=== PATIENT | male | born 1960 | race Caucasian/White ===

== ENCOUNTER 2017-12-14 09:15 | Inpatient (IN) | payer OTHER ==
[~2017-12-14] VITALS: Ht 195.6 cm; Wt 173.1 kg
[2017-12-14] MEDS ORDERED: SODIUM CHLORIDE 0.9% 1,000ML IVBOLUS ONE (10:30)
[2017-12-14 10:36] LABS: MEAN CORPUSCULAR HEMOGLOBIN 29.2 pg (27.5-34.5); MEAN CORPUSCULAR VOLUME 88.5 fL (81-97); MEAN PLATELET VOLUME 9.9 fL (7.4-10.4); PLATELET COUNT 220 x10^3/uL (130-400); RED CELL DISTRIBUTION WIDTH 14.8 % (9.4-14.8)
[2017-12-14 10:48] LABS: ALANINE AMINOTRANSFERASE 28 U/L (12-78); ALBUMIN 3.7 g/dL (3.4-5.0); ANION GAP 12 mmol/L (5-15); CALCIUM 8.8 mg/dL (8.5-10.1); CHLORIDE 101 mmol/L (98-107)
[2017-12-14 10:51] LABS: ALKALINE PHOSPHATASE 104 U/L (45-117); BILIRUBIN,TOTAL 0.9 mg/dL (0.2-1.0); CREATININE 1.24 mg/dL (0.7-1.3); TOTAL PROTEIN 8.5 g/dL (6.4-8.2)
[2017-12-14 10:52] LABS: MICROSCOPIC INDICATED
[2017-12-14 11:02] LABS: CULTURE INDICATED? NO
[2017-12-14] MEDS ORDERED: OMNIPAQUE 350 MG/ML, 150 ML BOTTLE ONE (11:42)
[2017-12-14 11:50] LABS: MD YES
[2017-12-14 11:56] LABS: <PLATELET ESTIMATE> ADEQUATE; <PLT MORPHOLOGY> NORMAL PLT MORPH; <RBC MORPHOLOGY> NORMAL; BAND#(MANUAL) 3.15 x10^3/uL; BANDS%(MANUAL) 16 % (0-7); SEG#(MANUAL) 16.55 x10^3/uL (1.8-6.8); SEGS% (MANUAL) 84 % (42-75); TOXIC GRAN 1+
[2017-12-14] MEDS ORDERED: INSU100V8 SQ ×2 (12:05)
[2017-12-14] MEDS ORDERED: DAPA5TAB PO (12:05)
[2017-12-14] MEDS ORDERED: INSU100C SQ-INSULIN (12:05)
[2017-12-14] MEDS ORDERED: FERR324T5 PO (12:08)
[2017-12-14] MEDS ORDERED: CYAN250013 PO (12:08)
[2017-12-14] MEDS ORDERED: CEFTRIAXONE PMX 1GM/50ML 50 ML ONE (12:25)
[2017-12-14] MEDS ORDERED: VANCOMYCIN 2,000 MG in SODIUM CHLORIDE 0.9% 500 ML IV ONE (12:30)
[2017-12-14] MEDS ORDERED: SODIUM CHLORIDE FLUSH 10ML SYR IVF PRN (12:30)
[2017-12-14] MEDS ORDERED: VANCOMYCIN PER PHARMACY IV ONE (12:30)
[2017-12-14] MEDS ORDERED: CEFTRIAXONE PMX 1GM/50ML 50 ML IVPB ONE (12:30)
[2017-12-14] MEDS ORDERED: FEBU80TA2 PO (12:38)
[2017-12-14] MEDS ORDERED: ASPI-496 PO (12:38)
[2017-12-14] MEDS ORDERED: SULF1TAB24 PO (12:38)
[2017-12-14] MEDS ORDERED: AMLO10TA2 PO (12:38)
[2017-12-14] MEDS ORDERED: LISI-170 PO (12:38)
[2017-12-14] MEDS ORDERED: MINO50TA2 PO (12:38)
[2017-12-14] MEDS ORDERED: GABA100C PO (12:38)
[2017-12-14] MEDS ORDERED: COLC0.6T37 PO (12:38)
[2017-12-14] MEDS ORDERED: METO-93 PO (12:38)
[2017-12-14] MEDS ORDERED: ALLO300T PO (12:38)
[2017-12-14] MEDS ORDERED: PIPERACILLIN/TAZO/PMX 4.5GM 100 ML IV SCH (13:00)
[2017-12-14] MEDS: ENOXAPARIN 40 MG/0.4 ML SQ SCH (13:00)
[2017-12-14] MEDS ORDERED: hydrALAzine 20 MG/ML, 1ML IVPush PRN (13:00)
[2017-12-14] MEDS ORDERED: VANCOMYCIN PER PHARMACY MC PRN (13:00)
[2017-12-14 14:24] VITALS: BP 134/85
[2017-12-14] MEDS ORDERED: PHARMACOKINETIC MONITORING MC PRN (14:30)
[2017-12-14] MEDS ORDERED: PHARMACOKINETIC CONSULTATION MC ONE (14:30)
[2017-12-14] MEDS: HYDROcodone/APAP 5/325 TABLET PO PRN ×2 (14:41→20:34)
[2017-12-14] MEDS: INSULIN LISPRO 100 UNITS/ML, PEN SQ-INSULIN SCH ×2 (17:14→20:32)
[2017-12-14] MEDS: LACTATED RINGERS 1,000 ML IV SCH (17:16)
[2017-12-14 17:44] LABS: HEMOGLOBIN A1C 9.4 % (4.2-6.3)
[2017-12-14 20:12] VITALS: BP 150/81
[2017-12-14] MEDS: CEFTAROLINE 600 MG in SODIUM CHLORIDE 0.9% 100 ML IV SCH (20:33)
[2017-12-14] MEDS: ONDANSETRON ODT 4 MG PO PRN (20:34)
[2017-12-14] MEDS ORDERED: INSULIN GLARGINE 100 UNITS/ML, PEN SQ-INSULIN SCH (21:00)
[2017-12-15] MEDS: LACTATED RINGERS 1,000 ML IV SCH ×3 (00:40→17:00)
[2017-12-15] MEDS: HYDROcodone/APAP 5/325 TABLET PO PRN ×2 (00:42→08:02)
[2017-12-15] MEDS ORDERED: VANCOMYCIN 2,000 MG in SODIUM CHLORIDE 0.9% 500 ML IV SCH (01:00)
[2017-12-15 01:25] VITALS: BP 130/72
[2017-12-15 05:34] LABS: MEAN CORPUSCULAR HEMOGLOBIN 29.7 pg (27.5-34.5); MEAN CORPUSCULAR HGB CONC 33.1 g/dL (33.2-36.2); MEAN CORPUSCULAR VOLUME 89.8 fL (81-97); MEAN PLATELET VOLUME 9.6 fL (7.4-10.4); PLATELET COUNT 194 x10^3/uL (130-400); RED BLOOD COUNT 5.33 x10^6/uL (4.38-5.82); RED CELL DISTRIBUTION WIDTH 15.2 % (9.4-14.8)
[2017-12-15 05:43] LABS: CHLORIDE 101 mmol/L (98-107)
[2017-12-15 06:00] LABS: ALANINE AMINOTRANSFERASE 28 U/L (12-78); ALBUMIN 3.1 g/dL (3.4-5.0); ALKALINE PHOSPHATASE 77 U/L (45-117); ANION GAP 9 mmol/L (5-15); BILIRUBIN,TOTAL 0.8 mg/dL (0.2-1.0); CALCIUM 8.5 mg/dL (8.5-10.1); CHOLESTEROL, TOTAL 155 mg/dL (140-239); CREATININE 1.01 mg/dL (0.7-1.3); HDL CHOL % 20 % (26-37); HDL CHOLESTEROL (DIRECT) 31 mg/dL (40-60); LDL CHOLESTEROL,CALCULATED 91 mg/dL (54-169); LDL/HDL RATIO 2.9 (0.5-3.0); TOTAL PROTEIN 7.8 g/dL (6.4-8.2); TRIGLYCERIDES 164 mg/dL (50-200); VLDL CHOLESTEROL 33 mg/dL (0-25)
[2017-12-15 06:02] LABS: MD YES
[2017-12-15 06:04] LABS: BAND#(MANUAL) 0.78 x10^3/uL; BANDS%(MANUAL) 5 % (0-7); BASOS#(MANUAL) 0.16 x10^3/uL (0-0.1); BASOS% (MANUAL) 1 % (0-1); EOS#(MANUAL) 0.16 x10^3/uL (0.0-0.4); EOS% (MANUAL) 1 % (1-7); LYMPH#(MANUAL) 1.09 x10^3/uL (1-3.4); LYMPHS% (MANUAL) 7 % (22-44); MONOS#(MANUAL) 0.31 x10^3/uL (0.3-2.7); MONOS% (MANUAL) 2 % (2-9); SEGS% (MANUAL) 84 % (42-75)
[2017-12-15 06:05] LABS: <PLATELET ESTIMATE> ADEQUATE; <PLT MORPHOLOGY> NORMAL PLT MORPH
[2017-12-15 06:06] LABS: POLYCHROMASIA 1+
[2017-12-15] MEDS: ONDANSETRON ODT 4 MG PO PRN (07:23)
[2017-12-15] MEDS: CEFTAROLINE 600 MG in SODIUM CHLORIDE 0.9% 100 ML IV SCH ×2 (08:02→15:38)
[2017-12-15] MEDS: INSULIN LISPRO 100 UNITS/ML, PEN SQ-INSULIN SCH ×4 (08:02→20:11)
[2017-12-15 08:23] VITALS: BP 157/76
[2017-12-15] MEDS ORDERED: INSULIN GLARGINE 100 UNITS/ML, PEN SQ-INSULIN SCH (12:00)
[2017-12-15] MEDS: KETOROLAC 30 MG/1 ML IVPush SCH ×2 (12:02→18:30)
[2017-12-15 12:39] VITALS: BP 125/76
[2017-12-15] MEDS: CLINDAMYCIN PMX 900MG/50ML 50 ML IV SCH ×2 (12:52→20:11)
[2017-12-15] MEDS: ENOXAPARIN 40 MG/0.4 ML SQ SCH (12:56)
[2017-12-15 19:33] VITALS: BP 113/68
[2017-12-15] MEDS: INSULIN GLARGINE 100 UNITS/ML, PEN SQ-INSULIN SCH (20:12)
[2017-12-16] MEDS: LACTATED RINGERS 1,000 ML IV SCH ×4 (00:07→23:59)
[2017-12-16] MEDS: KETOROLAC 30 MG/1 ML IVPush SCH ×5 (00:07→23:59)
[2017-12-16] MEDS: CEFTAROLINE 600 MG in SODIUM CHLORIDE 0.9% 100 ML IV SCH ×4 (00:08→23:59)
[2017-12-16] MEDS: ONDANSETRON ODT 4 MG PO PRN ×2 (00:09→03:46)
[2017-12-16 02:00] VITALS: BP 132/72
[2017-12-16] MEDS: HYDROcodone/APAP 5/325 TABLET PO PRN ×3 (03:30→19:50)
[2017-12-16] MEDS: CLINDAMYCIN PMX 900MG/50ML 50 ML IV SCH ×3 (06:03→20:15)
[2017-12-16 08:04] LABS: BASOPHILS # (AUTO) 0.01 x10^3/uL (0-0.1); BASOPHILS % (AUTO) 0 % (0-1); EOSINOPHILS # (AUTO) 0.24 x10^3/uL (0-0.4); EOSINOPHILS % (AUTO) 2 % (1-7); LYMPHOCYTES # (AUTO) 0.71 x10^3/uL (1-3.4); LYMPHOCYTES % (AUTO) 5 % (22-44); MD NO; MEAN CORPUSCULAR HEMOGLOBIN 29.6 pg (27.5-34.5); MEAN CORPUSCULAR VOLUME 89.7 fL (81-97); MEAN PLATELET VOLUME 9.6 fL (7.4-10.4); MONOCYTES # (AUTO) 0.76 x10^3/uL (0.2-0.8); MONOCYTES % (AUTO) 6 % (2-9); NEUTROPHILS # (AUTO) 11.91 x10^3/uL (1.8-6.8); NEUTROPHILS % (AUTO) 87 % (42-75); PLATELET COUNT 177 x10^3/uL (130-400); RED BLOOD COUNT 5.35 x10^6/uL (4.38-5.82); RED CELL DISTRIBUTION WIDTH 15.1 % (9.4-14.8)
[2017-12-16 08:15] LABS: ALBUMIN 2.9 g/dL (3.4-5.0); ANION GAP 6 mmol/L (5-15); CALCIUM 8.3 mg/dL (8.5-10.1); CHLORIDE 100 mmol/L (98-107)
[2017-12-16 08:18] LABS: ALANINE AMINOTRANSFERASE 59 U/L (12-78); ALKALINE PHOSPHATASE 98 U/L (45-117); BILIRUBIN,TOTAL 0.8 mg/dL (0.2-1.0); CREATININE 1.01 mg/dL (0.7-1.3); TOTAL PROTEIN 7.4 g/dL (6.4-8.2)
[2017-12-16] MEDS: INSULIN GLARGINE 100 UNITS/ML, PEN SQ-INSULIN SCH ×2 (08:26→20:17)
[2017-12-16] MEDS: INSULIN LISPRO 100 UNITS/ML, PEN SQ-INSULIN SCH ×4 (08:27→20:16)
[2017-12-16 08:29] VITALS: BP 143/72
[2017-12-16] MEDS: ENOXAPARIN 40 MG/0.4 ML SQ SCH (13:00)
[2017-12-16 14:20] VITALS: BP 149/77
[2017-12-16 19:04] VITALS: BP 146/83
[2017-12-17 02:48] VITALS: BP 116/80
[2017-12-17 05:01] LABS: BASOPHILS # (AUTO) 0.03 x10^3/uL (0-0.1); BASOPHILS % (AUTO) 0 % (0-1); EOSINOPHILS # (AUTO) 0.24 x10^3/uL (0-0.4); EOSINOPHILS % (AUTO) 2 % (1-7); LYMPHOCYTES # (AUTO) 1.56 x10^3/uL (1-3.4); LYMPHOCYTES % (AUTO) 15 % (22-44); MD NO; MEAN CORPUSCULAR HEMOGLOBIN 29.8 pg (27.5-34.5); MEAN CORPUSCULAR HGB CONC 32.9 g/dL (33.2-36.2); MEAN CORPUSCULAR VOLUME 90.6 fL (81-97); MEAN PLATELET VOLUME 10.2 fL (7.4-10.4); MONOCYTES % (AUTO) 8 % (2-9); NEUTROPHILS # (AUTO) 8.13 x10^3/uL (1.8-6.8); NEUTROPHILS % (AUTO) 76 % (42-75); PLATELET COUNT 171 x10^3/uL (130-400); RED BLOOD COUNT 4.92 x10^6/uL (4.38-5.82); RED CELL DISTRIBUTION WIDTH 14.7 % (9.4-14.8)
[2017-12-17 05:10] LABS: ALBUMIN 2.7 g/dL (3.4-5.0); ANION GAP 4 mmol/L (5-15); CALCIUM 8.4 mg/dL (8.5-10.1); CHLORIDE 102 mmol/L (98-107)
[2017-12-17 05:16] LABS: ALANINE AMINOTRANSFERASE 68 U/L (12-78); ALKALINE PHOSPHATASE 135 U/L (45-117); BILIRUBIN,TOTAL 0.4 mg/dL (0.2-1.0); CREATININE 1.02 mg/dL (0.7-1.3); TOTAL PROTEIN 7.1 g/dL (6.4-8.2)
[2017-12-17] MEDS: KETOROLAC 30 MG/1 ML IVPush SCH ×4 (05:18→23:52)
[2017-12-17] MEDS: CLINDAMYCIN PMX 900MG/50ML 50 ML IV SCH ×3 (05:18→21:07)
[2017-12-17] MEDS: LACTATED RINGERS 1,000 ML IV SCH ×2 (05:25→14:49)
[2017-12-17] MEDS: HYDROcodone/APAP 5/325 TABLET PO PRN ×3 (05:38→17:55)
[2017-12-17 07:34] VITALS: BP 153/84
[2017-12-17] MEDS: CEFTAROLINE 600 MG in SODIUM CHLORIDE 0.9% 100 ML IV SCH ×3 (07:58→23:51)
[2017-12-17] MEDS: INSULIN LISPRO 100 UNITS/ML, PEN SQ-INSULIN SCH ×4 (07:58→21:07)
[2017-12-17] MEDS: INSULIN GLARGINE 100 UNITS/ML, PEN SQ-INSULIN SCH ×2 (09:01→21:08)
[2017-12-17] MEDS: LISINOPRIL 20 MG TABLET PO SCH (10:01)
[2017-12-17] MEDS: ENOXAPARIN 40 MG/0.4 ML SQ SCH (12:03)
[2017-12-17 14:38] VITALS: BP 155/86
[2017-12-17] MEDS: ONDANSETRON ODT 4 MG PO PRN (17:48)
[2017-12-17 19:53] VITALS: BP 144/81
[2017-12-17] MEDS: METOPROLOL SUCCINATE 50 MG TAB.ER.24H PO SCH ×3 (21:07→21:24)
[2017-12-18 01:31] VITALS: BP 144/83
[2017-12-18] MEDS: HYDROcodone/APAP 5/325 TABLET PO PRN ×3 (01:53→23:01)
[2017-12-18] MEDS: LACTATED RINGERS 1,000 ML IV SCH ×4 (01:53→18:26)
[2017-12-18] MEDS: ONDANSETRON ODT 4 MG PO PRN ×3 (01:53→23:01)
[2017-12-18] MEDS: CLINDAMYCIN PMX 900MG/50ML 50 ML IV SCH ×3 (04:53→20:31)
[2017-12-18] MEDS: KETOROLAC 30 MG/1 ML IVPush SCH ×3 (06:01→18:26)
[2017-12-18 06:16] LABS: BASOPHILS # (AUTO) 0.02 x10^3/uL (0-0.1); BASOPHILS % (AUTO) 0 % (0-1); EOSINOPHILS # (AUTO) 0.16 x10^3/uL (0-0.4); EOSINOPHILS % (AUTO) 2 % (1-7); LYMPHOCYTES # (AUTO) 1.85 x10^3/uL (1-3.4); LYMPHOCYTES % (AUTO) 20 % (22-44); MD NO; MEAN CORPUSCULAR HEMOGLOBIN 29.7 pg (27.5-34.5); MEAN CORPUSCULAR HGB CONC 32.9 g/dL (33.2-36.2); MEAN CORPUSCULAR VOLUME 90.2 fL (81-97); MONOCYTES # (AUTO) 0.75 x10^3/uL (0.2-0.8); MONOCYTES % (AUTO) 8 % (2-9); NEUTROPHILS # (AUTO) 6.47 x10^3/uL (1.8-6.8); NEUTROPHILS % (AUTO) 70 % (42-75); PLATELET COUNT 173 x10^3/uL (130-400); RED CELL DISTRIBUTION WIDTH 14.6 % (9.4-14.8)
[2017-12-18 06:22] LABS: ALBUMIN 2.5 g/dL (3.4-5.0); CALCIUM 8.5 mg/dL (8.5-10.1)
[2017-12-18 06:27] LABS: ANION GAP 8 mmol/L (5-15); CHLORIDE 103 mmol/L (98-107)
[2017-12-18 06:35] LABS: ALANINE AMINOTRANSFERASE 69 U/L (12-78); ALKALINE PHOSPHATASE 190 U/L (45-117); BILIRUBIN,TOTAL 0.6 mg/dL (0.2-1.0); CREATININE 0.83 mg/dL (0.7-1.3); TOTAL PROTEIN 6.9 g/dL (6.4-8.2)
[2017-12-18 07:54] VITALS: BP 143/81
[2017-12-18] MEDS: INSULIN GLARGINE 100 UNITS/ML, PEN SQ-INSULIN SCH ×2 (09:02→20:31)
[2017-12-18] MEDS: INSULIN LISPRO 100 UNITS/ML, PEN SQ-INSULIN SCH ×4 (09:03→20:32)
[2017-12-18] MEDS: LISINOPRIL 20 MG TABLET PO SCH (09:30)
[2017-12-18] MEDS: CEFTAROLINE 600 MG in SODIUM CHLORIDE 0.9% 100 ML IV SCH ×2 (09:31→16:00)
[2017-12-18] MEDS: ENOXAPARIN 40 MG/0.4 ML SQ SCH (13:00)
[2017-12-18 13:36] VITALS: BP 137/85
[2017-12-18 18:51] VITALS: BP 160/89
[2017-12-18] MEDS: METOPROLOL SUCCINATE 50 MG TAB.ER.24H PO SCH (20:31)
[2017-12-19] MEDS: CEFTAROLINE 600 MG in SODIUM CHLORIDE 0.9% 100 ML IV SCH ×4 (00:02→23:53)
[2017-12-19] MEDS: KETOROLAC 30 MG/1 ML IVPush SCH ×5 (00:02→23:53)
[2017-12-19 00:46] VITALS: BP 155/89
[2017-12-19] MEDS: LACTATED RINGERS 1,000 ML IV SCH ×3 (04:09→23:53)
[2017-12-19] MEDS: CLINDAMYCIN PMX 900MG/50ML 50 ML IV SCH ×3 (04:54→21:24)
[2017-12-19] MEDS: ONDANSETRON ODT 4 MG PO PRN ×4 (05:56→23:06)
[2017-12-19] MEDS: HYDROcodone/APAP 5/325 TABLET PO PRN ×4 (06:11→23:06)
[2017-12-19] MEDS: LISINOPRIL 20 MG TABLET PO SCH (07:49)
[2017-12-19] MEDS: INSULIN GLARGINE 100 UNITS/ML, PEN SQ-INSULIN SCH ×2 (07:51→21:00)
[2017-12-19] MEDS: INSULIN LISPRO 100 UNITS/ML, PEN SQ-INSULIN SCH ×4 (08:40→21:00)
[2017-12-19 09:04] VITALS: BP 177/89
[2017-12-19] MEDS ORDERED: LIDOCAINE 2%, 10ML INFIL ONE (10:30)
[2017-12-19] MEDS: ENOXAPARIN 40 MG/0.4 ML SQ SCH (13:00)
[2017-12-19 13:50] VITALS: BP 179/66
[2017-12-19 18:45] VITALS: BP 166/95
[2017-12-19] MEDS: METOPROLOL SUCCINATE 50 MG TAB.ER.24H PO SCH (20:32)
[2017-12-20 01:38] VITALS: BP 182/82
[2017-12-20] MEDS: KETOROLAC 30 MG/1 ML IVPush SCH (05:56)
[2017-12-20] MEDS: CLINDAMYCIN PMX 900MG/50ML 50 ML IV SCH ×3 (05:56→17:42)
[2017-12-20] MEDS: ONDANSETRON ODT 4 MG PO PRN ×2 (05:56→17:43)
[2017-12-20] MEDS: HYDROcodone/APAP 5/325 TABLET PO PRN ×3 (05:56→18:12)
[2017-12-20 08:16] VITALS: BP 166/83
[2017-12-20] MEDS: CEFTAROLINE 600 MG in SODIUM CHLORIDE 0.9% 100 ML IV SCH ×2 (08:46→16:53)
[2017-12-20] MEDS: LISINOPRIL 20 MG TABLET PO SCH (08:47)
[2017-12-20] MEDS: INSULIN LISPRO 100 UNITS/ML, PEN SQ-INSULIN SCH ×4 (08:47→21:08)
[2017-12-20] MEDS: INSULIN GLARGINE 100 UNITS/ML, PEN SQ-INSULIN SCH ×2 (08:48→21:09)
[2017-12-20] MEDS: LACTATED RINGERS 1,000 ML IV SCH ×2 (12:58→21:09)
[2017-12-20] MEDS: ENOXAPARIN 40 MG/0.4 ML SQ SCH (12:59)
[2017-12-20 14:15] VITALS: BP 166/80
[2017-12-20 20:14] VITALS: BP 186/102
[2017-12-20] MEDS: METOPROLOL SUCCINATE 50 MG TAB.ER.24H PO SCH (20:27)
[2017-12-20 22:00] VITALS: BP 190/103
[2017-12-20] MEDS: LABETALOL 5MG/ML, 20ML IVPush PRN (22:08)
[2017-12-20 23:00] VITALS: BP 183/93
[2017-12-20 23:55] LABS: MICROSCOPIC NOT IND
[2017-12-20 23:57] LABS: CULTURE INDICATED? NO
[2017-12-21] VITALS (10 sets, daily range): BP systolic 161–191; BP diastolic 74–110
[2017-12-21] MEDS: CEFTAROLINE 600 MG in SODIUM CHLORIDE 0.9% 100 ML IV SCH ×3 (00:50→16:33)
[2017-12-21] MEDS: ONDANSETRON ODT 4 MG PO PRN ×2 (01:46→06:43)
[2017-12-21] MEDS: HYDROcodone/APAP 5/325 TABLET PO PRN ×3 (01:46→23:03)
[2017-12-21] MEDS: LABETALOL 5MG/ML, 20ML IVPush PRN ×2 (02:34→20:42)
[2017-12-21] MEDS: ONDANSETRON 2MG/ML, 2ML IVPush PRN ×3 (02:53→19:31)
[2017-12-21] MEDS: CLINDAMYCIN PMX 900MG/50ML 50 ML IV SCH ×3 (04:10→20:24)
[2017-12-21] MEDS ORDERED: HYDROmorphone 2 MG/ML, 1ML ONE ×5 (05:50→20:35)
[2017-12-21] MEDS ORDERED: HYDROmorphone 1 MG/ML, 1ML IV PRN (06:00)
[2017-12-21] MEDS: hydrALAzine 20 MG/ML, 1ML IV PRN ×2 (06:43→21:54)
[2017-12-21] MEDS: INSULIN LISPRO 100 UNITS/ML, PEN SQ-INSULIN SCH ×4 (08:12→20:00)
[2017-12-21] MEDS: FERROUS SULFATE 325 MG TABLET PO SCH (08:13)
[2017-12-21] MEDS: LISINOPRIL 20 MG TABLET PO SCH (08:15)
[2017-12-21] MEDS: ALLOPURINOL 300 MG TABLET PO SCH (08:15)
[2017-12-21] MEDS: AMLODIPINE 5 MG TABLET PO SCH (08:15)
[2017-12-21] MEDS ORDERED: hydrALAzine 20 MG/ML, 1ML IVPush PRN (09:00)
[2017-12-21] MEDS: HYDROmorphone 1 MG/ML, 1ML IV PRN ×4 (09:24→20:42)
[2017-12-21 09:26] LABS: MEAN CORPUSCULAR HEMOGLOBIN 29.3 pg (27.5-34.5); MEAN CORPUSCULAR HGB CONC 32.9 g/dL (33.2-36.2); MEAN CORPUSCULAR VOLUME 89.1 fL (81-97); MEAN PLATELET VOLUME 9.4 fL (7.4-10.4); PLATELET COUNT 256 x10^3/uL (130-400); RED BLOOD COUNT 5.13 x10^6/uL (4.38-5.82); RED CELL DISTRIBUTION WIDTH 14.7 % (9.4-14.8)
[2017-12-21 09:38] LABS: ALANINE AMINOTRANSFERASE 63 U/L (12-78); ALBUMIN 2.9 g/dL (3.4-5.0); ANION GAP 5 mmol/L (5-15); CALCIUM 8.7 mg/dL (8.5-10.1); CHLORIDE 100 mmol/L (98-107); CREATININE 0.91 mg/dL (0.7-1.3)
[2017-12-21 09:40] LABS: ALKALINE PHOSPHATASE 246 U/L (45-117); BILIRUBIN,TOTAL 0.5 mg/dL (0.2-1.0); TOTAL PROTEIN 7.3 g/dL (6.4-8.2)
[2017-12-21 09:45] LABS: MD SCAN
[2017-12-21 09:46] LABS: BASOPHILS # (AUTO) 0.01 x10^3/uL (0-0.1); BASOPHILS % (AUTO) 0 % (0-1); EOSINOPHILS # (AUTO) 0.12 x10^3/uL (0-0.4); EOSINOPHILS % (AUTO) 1 % (1-7); LYMPHOCYTES % (AUTO) 14 % (22-44); MONOCYTES # (AUTO) 0.22 x10^3/uL (0.2-0.8); MONOCYTES % (AUTO) 2 % (2-9); NEUTROPHILS # (AUTO) 8.88 x10^3/uL (1.8-6.8); NEUTROPHILS % (AUTO) 83 % (42-75)
[2017-12-21] MEDS: INSULIN GLARGINE 100 UNITS/ML, PEN SQ-INSULIN SCH ×2 (10:42→20:00)
[2017-12-21] MEDS ORDERED: BISACODYL 5 MG EC TABLET PO PRN (12:00)
[2017-12-21] MEDS: ENOXAPARIN 40 MG/0.4 ML SQ SCH (13:00)
[2017-12-21] MEDS: ASPIRIN 81 MG TABLET EC PO SCH (19:31)
[2017-12-21] MEDS: METOPROLOL SUCCINATE 50 MG TAB.ER.24H PO SCH (19:48)
[2017-12-21] MEDS: GABAPENTIN 100 MG CAPSULE PO SCH (19:48)
[2017-12-22] VITALS (8 sets, daily range): BP systolic 164–194; BP diastolic 82–127
[2017-12-22] MEDS: CEFTAROLINE 600 MG in SODIUM CHLORIDE 0.9% 100 ML IV SCH ×3 (00:29→17:57)
[2017-12-22] MEDS: ENALAPRILAT 1.25 MG/ML, 2ML IV PRN ×2 (01:01→09:17)
[2017-12-22] MEDS ORDERED: HYDROmorphone 2 MG/ML, 1ML ONE ×5 (01:50→19:48)
[2017-12-22] MEDS: ONDANSETRON 2MG/ML, 2ML IVPush PRN ×4 (01:52→23:29)
[2017-12-22] MEDS: HYDROmorphone 1 MG/ML, 1ML IV PRN ×5 (01:54→20:13)
[2017-12-22] MEDS: CLINDAMYCIN PMX 900MG/50ML 50 ML IV SCH ×2 (05:12→16:32)
[2017-12-22] MEDS: HYDROcodone/APAP 5/325 TABLET PO PRN ×3 (06:38→23:26)
[2017-12-22] MEDS: ALLOPURINOL 300 MG TABLET PO SCH (07:58)
[2017-12-22] MEDS: AMLODIPINE 5 MG TABLET PO SCH (07:58)
[2017-12-22] MEDS: FERROUS SULFATE 325 MG TABLET PO SCH (07:58)
[2017-12-22] MEDS: LISINOPRIL 20 MG TABLET PO SCH (07:58)
[2017-12-22] MEDS: INSULIN GLARGINE 100 UNITS/ML, PEN SQ-INSULIN SCH ×2 (08:00→20:12)
[2017-12-22] MEDS: INSULIN LISPRO 100 UNITS/ML, PEN SQ-INSULIN SCH ×4 (08:01→20:13)
[2017-12-22] MEDS ORDERED: FUROSEMIDE 40 MG/4 ML IV ONE (09:30)
[2017-12-22] MEDS: ONDANSETRON ODT 4 MG PO PRN ×2 (12:07→19:28)
[2017-12-22] MEDS: hydrALAzine 20 MG/ML, 1ML IV PRN (12:07)
[2017-12-22] MEDS: ENOXAPARIN 40 MG/0.4 ML SQ SCH (13:00)
[2017-12-22] MEDS ORDERED: OMNIPAQUE 350 MG/ML, 150 ML BOTTLE ONE (15:42)
[2017-12-22] MEDS: NYSTATIN TOPICAL POWDER 15GM TP SCH ×2 (16:00→21:00)
[2017-12-22] MEDS: METOPROLOL SUCCINATE 50 MG TAB.ER.24H PO SCH (20:15)
[2017-12-22] MEDS: GABAPENTIN 100 MG CAPSULE PO SCH (20:15)
[2017-12-22] MEDS: ASPIRIN 81 MG TABLET EC PO SCH (20:15)
[2017-12-22 20:58] LABS: MICROSCOPIC NOT IND
[2017-12-22 21:00] LABS: CULTURE INDICATED? NO
[2017-12-23] MEDS: CLINDAMYCIN PMX 900MG/50ML 50 ML IV SCH ×4 (00:08→23:57)
[2017-12-23 01:07] VITALS: BP 171/92
[2017-12-23] MEDS: hydrALAzine 20 MG/ML, 1ML IV PRN (02:21)
[2017-12-23] MEDS: CEFTAROLINE 600 MG in SODIUM CHLORIDE 0.9% 100 ML IV SCH ×3 (02:21→18:15)
[2017-12-23] MEDS ORDERED: HYDROmorphone 2 MG/ML, 1ML ONE ×3 (02:34→22:00)
[2017-12-23 03:30] VITALS: BP 157/86
[2017-12-23 05:00] LABS: BASOPHILS # (AUTO) 0.04 x10^3/uL (0-0.1); BASOPHILS % (AUTO) 0 % (0-1); EOSINOPHILS # (AUTO) 0.15 x10^3/uL (0-0.4); EOSINOPHILS % (AUTO) 1 % (1-7); LYMPHOCYTES # (AUTO) 1.85 x10^3/uL (1-3.4); LYMPHOCYTES % (AUTO) 16 % (22-44); MD NO; MEAN CORPUSCULAR HEMOGLOBIN 29.5 pg (27.5-34.5); MEAN CORPUSCULAR HGB CONC 32.6 g/dL (33.2-36.2); MEAN CORPUSCULAR VOLUME 90.4 fL (81-97); MEAN PLATELET VOLUME 9.8 fL (7.4-10.4); MONOCYTES # (AUTO) 0.59 x10^3/uL (0.2-0.8); MONOCYTES % (AUTO) 5 % (2-9); NEUTROPHILS # (AUTO) 8.96 x10^3/uL (1.8-6.8); NEUTROPHILS % (AUTO) 77 % (42-75); PLATELET COUNT 280 x10^3/uL (130-400); RED BLOOD COUNT 5.06 x10^6/uL (4.38-5.82); RED CELL DISTRIBUTION WIDTH 15.6 % (9.4-14.8)
[2017-12-23 05:09] LABS: ALBUMIN 3.1 g/dL (3.4-5.0); ANION GAP 3 mmol/L (5-15); CALCIUM 8.5 mg/dL (8.5-10.1); CHLORIDE 96 mmol/L (98-107)
[2017-12-23 05:17] LABS: ALANINE AMINOTRANSFERASE 45 U/L (12-78); ALKALINE PHOSPHATASE 204 U/L (45-117); BILIRUBIN,TOTAL 0.6 mg/dL (0.2-1.0); CREATININE 0.83 mg/dL (0.7-1.3); TOTAL PROTEIN 7.3 g/dL (6.4-8.2)
[2017-12-23 06:11] LABS: HCT (SEDRATE) 45.8 % (39.2-51.8)
[2017-12-23 07:31] VITALS: BP 148/81
[2017-12-23] MEDS: ONDANSETRON 2MG/ML, 2ML IVPush PRN ×2 (08:51→16:41)
[2017-12-23] MEDS: HYDROcodone/APAP 5/325 TABLET PO PRN ×4 (08:52→22:09)
[2017-12-23] MEDS: INSULIN LISPRO 100 UNITS/ML, PEN SQ-INSULIN SCH ×4 (09:13→22:07)
[2017-12-23] MEDS: FERROUS SULFATE 325 MG TABLET PO SCH (10:43)
[2017-12-23] MEDS: AMLODIPINE 5 MG TABLET PO SCH (10:43)
[2017-12-23] MEDS: ALLOPURINOL 300 MG TABLET PO SCH (10:44)
[2017-12-23] MEDS: LISINOPRIL 20 MG TABLET PO SCH (10:52)
[2017-12-23] MEDS ORDERED: FUROSEMIDE 40 MG/4 ML IV ONE (11:00)
[2017-12-23 12:17] VITALS: BP 158/82
[2017-12-23] MEDS: INSULIN GLARGINE 100 UNITS/ML, PEN SQ-INSULIN SCH ×2 (12:24→22:06)
[2017-12-23] MEDS: NYSTATIN TOPICAL POWDER 15GM TP SCH ×3 (12:26→22:09)
[2017-12-23] MEDS: ENOXAPARIN 40 MG/0.4 ML SQ SCH (13:00)
[2017-12-23] MEDS: HYDROmorphone 1 MG/ML, 1ML IV PRN ×2 (18:41→22:04)
[2017-12-23] MEDS: ONDANSETRON ODT 4 MG PO PRN ×2 (18:42→22:58)
[2017-12-23 19:11] VITALS: BP 147/76
[2017-12-23] MEDS: ASPIRIN 81 MG TABLET EC PO SCH (22:08)
[2017-12-23] MEDS: METOPROLOL SUCCINATE 50 MG TAB.ER.24H PO SCH (22:08)
[2017-12-23] MEDS: GABAPENTIN 100 MG CAPSULE PO SCH (22:08)
[2017-12-24] MEDS: CEFTAROLINE 600 MG in SODIUM CHLORIDE 0.9% 100 ML IV SCH ×3 (01:58→18:15)
[2017-12-24 02:22] VITALS: BP 155/83
[2017-12-24] MEDS ORDERED: HYDROmorphone 2 MG/ML, 1ML ONE ×3 (04:20→19:43)
[2017-12-24] MEDS: HYDROmorphone 1 MG/ML, 1ML IV PRN ×3 (04:23→19:47)
[2017-12-24] MEDS: ONDANSETRON 2MG/ML, 2ML IVPush PRN ×3 (04:32→21:47)
[2017-12-24] MEDS: HYDROcodone/APAP 5/325 TABLET PO PRN ×3 (04:56→21:47)
[2017-12-24 06:04] LABS: CHLORIDE 96 mmol/L (98-107)
[2017-12-24 06:08] LABS: ANION GAP 6 mmol/L (5-15); CALCIUM 8.4 mg/dL (8.5-10.1)
[2017-12-24 07:13] VITALS: BP 147/76
[2017-12-24] MEDS: INSULIN LISPRO 100 UNITS/ML, PEN SQ-INSULIN SCH ×4 (07:51→21:35)
[2017-12-24] MEDS: ONDANSETRON ODT 4 MG PO PRN ×2 (07:54→19:40)
[2017-12-24] MEDS: CLINDAMYCIN PMX 900MG/50ML 50 ML IV SCH ×3 (08:10→23:58)
[2017-12-24] MEDS: NYSTATIN TOPICAL POWDER 15GM TP SCH ×3 (09:00→21:37)
[2017-12-24] MEDS: FERROUS SULFATE 325 MG TABLET PO SCH (09:15)
[2017-12-24] MEDS: AMLODIPINE 5 MG TABLET PO SCH (09:16)
[2017-12-24] MEDS: LISINOPRIL 20 MG TABLET PO SCH (09:17)
[2017-12-24] MEDS: ALLOPURINOL 300 MG TABLET PO SCH (09:18)
[2017-12-24] MEDS: INSULIN GLARGINE 100 UNITS/ML, PEN SQ-INSULIN SCH ×2 (09:22→21:36)
[2017-12-24 12:39] VITALS: BP 148/71
[2017-12-24] MEDS: ENOXAPARIN 40 MG/0.4 ML SQ SCH (13:00)
[2017-12-24 19:04] VITALS: BP 172/87
[2017-12-24] MEDS: ASPIRIN 81 MG TABLET EC PO SCH (21:34)
[2017-12-24] MEDS: GABAPENTIN 100 MG CAPSULE PO SCH (21:34)
[2017-12-24] MEDS: METOPROLOL SUCCINATE 50 MG TAB.ER.24H PO SCH (21:34)
[2017-12-25 00:22] VITALS: BP 146/74
[2017-12-25] MEDS ORDERED: HYDROmorphone 2 MG/ML, 1ML ONE ×4 (00:47→19:00)
[2017-12-25] MEDS: HYDROmorphone 1 MG/ML, 1ML IV PRN ×4 (00:51→19:03)
[2017-12-25] MEDS: ONDANSETRON ODT 4 MG PO PRN ×3 (00:55→19:09)
[2017-12-25] MEDS: CEFTAROLINE 600 MG in SODIUM CHLORIDE 0.9% 100 ML IV SCH ×3 (02:10→19:08)
[2017-12-25 06:27] VITALS: BP 150/84
[2017-12-25] MEDS: CLINDAMYCIN PMX 900MG/50ML 50 ML IV SCH ×3 (07:42→23:47)
[2017-12-25] MEDS: HYDROcodone/APAP 5/325 TABLET PO PRN (09:24)
[2017-12-25] MEDS: LISINOPRIL 20 MG TABLET PO SCH (09:25)
[2017-12-25] MEDS: FERROUS SULFATE 325 MG TABLET PO SCH (09:25)
[2017-12-25] MEDS: ALLOPURINOL 300 MG TABLET PO SCH (09:25)
[2017-12-25] MEDS: AMLODIPINE 5 MG TABLET PO SCH (09:25)
[2017-12-25] MEDS: INSULIN GLARGINE 100 UNITS/ML, PEN SQ-INSULIN SCH ×2 (09:27→20:51)
[2017-12-25] MEDS: INSULIN LISPRO 100 UNITS/ML, PEN SQ-INSULIN SCH ×4 (09:28→20:51)
[2017-12-25] MEDS: NYSTATIN TOPICAL POWDER 15GM TP SCH ×3 (10:44→20:59)
[2017-12-25 12:26] VITALS: BP 162/87
[2017-12-25] MEDS: ENOXAPARIN 40 MG/0.4 ML SQ SCH (12:45)
[2017-12-25 20:00] VITALS: BP 169/91
[2017-12-25 20:48] VITALS: BP 136/80
[2017-12-25] MEDS: GABAPENTIN 100 MG CAPSULE PO SCH (20:49)
[2017-12-25] MEDS: METOPROLOL SUCCINATE 50 MG TAB.ER.24H PO SCH (20:49)
[2017-12-25] MEDS: ASPIRIN 81 MG TABLET EC PO SCH (20:49)
[2017-12-26] MEDS: CEFTAROLINE 600 MG in SODIUM CHLORIDE 0.9% 100 ML IV SCH ×3 (02:10→18:02)
[2017-12-26 03:00] VITALS: BP 137/81
[2017-12-26] MEDS: ONDANSETRON ODT 4 MG PO PRN ×3 (06:32→21:09)
[2017-12-26] MEDS: HYDROcodone/APAP 5/325 TABLET PO PRN ×4 (06:32→21:09)
[2017-12-26 08:12] VITALS: BP 154/88
[2017-12-26] MEDS: AMLODIPINE 5 MG TABLET PO SCH (08:17)
[2017-12-26] MEDS: LISINOPRIL 20 MG TABLET PO SCH (08:17)
[2017-12-26] MEDS: CLINDAMYCIN PMX 900MG/50ML 50 ML IV SCH ×3 (08:17→23:39)
[2017-12-26] MEDS: ALLOPURINOL 300 MG TABLET PO SCH (08:17)
[2017-12-26] MEDS: FERROUS SULFATE 325 MG TABLET PO SCH (08:17)
[2017-12-26] MEDS: INSULIN LISPRO 100 UNITS/ML, PEN SQ-INSULIN SCH ×4 (08:18→21:17)
[2017-12-26] MEDS: INSULIN GLARGINE 100 UNITS/ML, PEN SQ-INSULIN SCH ×2 (08:18→21:17)
[2017-12-26] MEDS: NYSTATIN TOPICAL POWDER 15GM TP SCH ×3 (10:59→21:16)
[2017-12-26] MEDS: ENOXAPARIN 40 MG/0.4 ML SQ SCH (12:14)
[2017-12-26 14:26] VITALS: BP 139/76
[2017-12-26 20:46] VITALS: BP 165/88
[2017-12-26] MEDS: GABAPENTIN 100 MG CAPSULE PO SCH (21:09)
[2017-12-26] MEDS: METOPROLOL SUCCINATE 50 MG TAB.ER.24H PO SCH (21:09)
[2017-12-26] MEDS: ASPIRIN 81 MG TABLET EC PO SCH (21:09)
[2017-12-27] MEDS: HYDROcodone/APAP 5/325 TABLET PO PRN ×2 (01:28→08:49)
[2017-12-27] MEDS: CEFTAROLINE 600 MG in SODIUM CHLORIDE 0.9% 100 ML IV SCH ×2 (01:28→12:51)
[2017-12-27] MEDS: ONDANSETRON ODT 4 MG PO PRN ×2 (01:28→08:49)
[2017-12-27 02:00] VITALS: BP 169/78
[2017-12-27 07:14] VITALS: BP 152/75
[2017-12-27] MEDS: CLINDAMYCIN PMX 900MG/50ML 50 ML IV SCH ×2 (08:49→16:00)
[2017-12-27] MEDS: FERROUS SULFATE 325 MG TABLET PO SCH (08:49)
[2017-12-27] MEDS: AMLODIPINE 5 MG TABLET PO SCH (08:50)
[2017-12-27] MEDS: ALLOPURINOL 300 MG TABLET PO SCH (08:50)
[2017-12-27] MEDS: LISINOPRIL 20 MG TABLET PO SCH (08:50)
[2017-12-27] MEDS: NYSTATIN TOPICAL POWDER 15GM TP SCH ×2 (08:51→16:00)
[2017-12-27] MEDS: INSULIN LISPRO 100 UNITS/ML, PEN SQ-INSULIN SCH ×3 (09:56→16:00)
[2017-12-27] MEDS: INSULIN GLARGINE 100 UNITS/ML, PEN SQ-INSULIN SCH (09:56)
[2017-12-27] MEDS ORDERED: DOXYCYCLINE 100MG CAP PO SCH (11:00)
[2017-12-27] MEDS: ENOXAPARIN 40 MG/0.4 ML SQ SCH (12:54)
[2017-12-27] MEDS ORDERED: DOXY100T10 PO (14:22)
[2017-12-27] MEDS ORDERED: OXYC-302 PO (14:31)
[2017-12-27] MEDS ORDERED: FURO-93 PO (14:38)
== END 2017-12-27 16:50 | disposition home or self-care (01) | DRG 872 ==
LOC: ED 12:27 → EDIP 12:28 → ED 13:07 → 3NE 13:55 → DCLOUNGE 12-27 16:36
PROVIDERS: ADMIT Hospitalist; ATTEND Hospitalist
DX: A41.9 Sepsis, unspecified organism (principal); E11.65 Type 2 diabetes mellitus with hyperglycemia; E27.8 Other specified disorders of adrenal gland; L03.317 Cellulitis of buttock; Z68.42 Body mass index [BMI] 45.0-49.9, adult; L02.31 Cutaneous abscess of buttock; E66.01 Morbid (severe) obesity due to excess calories; E78.00 Pure hypercholesterolemia, unspecified; E78.5 Hyperlipidemia, unspecified; F32.9 Major depressive disorder, single episode, unspecified; G89.29 Other chronic pain; I10 Essential (primary) hypertension; M10.9 Gout, unspecified; R65.20 Severe sepsis without septic shock; R74.8 Abnormal levels of other serum enzymes; Z53.29 Procedure and treatment not carried out because of patient's decision for other reasons; Z79.4 Long term (current) use of insulin; Z82.0 Family history of epilepsy and other diseases of the nervous system; Z87.442 Personal history of urinary calculi; Z88.0 Allergy status to penicillin; Z88.8 Allergy status to other drugs, medicaments and biological substances; Z88.1 Allergy status to other antibiotic agents; Z88.5 Allergy status to narcotic agent
CPT/HCPCS: 36415; 71045; 74021; 74177; 80048; 80053; 80061; 81001; 81003; 82962; 83036; 83605; 83735; 84100; 84145; 85025; 85651; 86140; 87040; 93005; 96361; 96365; 96375; C8929; J0696; J0712; J1170; J1885; J1940; J2405; J3370; Q0162; Q9967; J0360; J1815; J7030; J7040; J7120

== ENCOUNTER 2019-11-04 13:18 | Emergency (ER) | payer OTHER ==
[~2019-11-04] VITALS: Ht 195.6 cm; Wt 184.8 kg
[~2019-11-04 13:18] MED LIST: ALLO300T PO; AMLO10TA8 PO; ASPI-496 PO; COLC0.6T37 PO; CYAN250013 PO; DAPA5TAB PO; DOXY100T23 PO; FEBU80TA2 PO; FERR324T5 PO; FURO-93 PO; GABA100C PO; INSU100C SQ-INSULIN; INSU100V8 SQ; LISI-170 PO; METO-93 PO; MINO50TA2 PO; OXYC-302 PO; SULF1TAB24 PO
[2019-11-04 13:20] VITALS: BP 214/126
--- NOTE | 2019-11-04 13:25 | NUR ---
THERAPEUTIC STRATEGY LEAD: EKG COMPLETED.
--- NOTE | 2019-11-04 14:58 | NUR ---
NO ANSWER WHEN CALLED FOR ROOM AT THIS TIME.
--- NOTE | 2019-11-04 15:09 | NUR ---
NO ANSWER X 2
--- NOTE | 2019-11-04 15:21 | NUR ---
NO ANS X 3. LWBS.
== END 2019-11-04 15:23 | disposition left against medical advice (07) ==
LOC: ED 15:15
DX: R11.2 Nausea with vomiting, unspecified (principal); Z53.21 Procedure and treatment not carried out due to patient leaving prior to being seen by health care provider
CPT/HCPCS: 93005; 99281; 99283